=== PATIENT | male | born 1940 | race Caucasian/White ===

== ENCOUNTER 2016-08-14 12:09 | Emergency (ER) | payer MEDICARE ==
[2016-08-14 12:04] LABS: URINE SOURCE CLEAN CATCH
[2016-08-14 12:06] LABS: URINE APPEARANCE CLEAR; URINE BILIRUBIN NEG (NEG); URINE BLOOD 3+ (NEG); URINE COLOR YELLOW; URINE GLUCOSE NEG (NORM); URINE KETONE NEG (NEG); URINE LEUKOCYTE ESTERASE NEG (NEG); URINE NITRATE NEG (NEG); URINE PH 5.5 (5-8); URINE PROTEIN NEG (NEG); URINE UROBILINOGEN 0.2 MG/DL (NORM)
[~2016-08-14 12:09] MED LIST: AMLODIPINE BESYL5 MG PO; AMLODIPINE PO; ASPIRIN EC81 M1 PO; ASPIRIN81 M1; ASPIRIN81 M2 PO; BENTYL20 MG PO; CARAFATE1 G PO; CARVEDILOL12.5 MG PO; CIPRO PO; CLOPIDOGREL75 MG PO; COLACE PO; COREG12.5 MG PO; EYE DROP15 ML OU; IMDUR-ER30 M2 PO; IMDUR-ER30 MG PO; ISOSORBIDE DINI30 MG PO; KEFLEX PO; KEFLEX500 M1 PO; KEFLEX500 M2 PO; LEVAQUIN750 M1 PO; LISINOPRIL10 MG; METRONIDAZOLE PO; MUCOSA400 MG PO; NORVASC PO; PERCOCET 5-3251 TAB PO; PHENERGAN VC W120 M1 PO; PLAVIX PO; PREDNISONE PO; RANITIDINE HCL150 M1 PO; VICODIN 5/1 TAB 5/50 PO; XALATAN OU; ZANTAC150 M1 PO
[2016-08-14 12:10] LABS: MICRO INDICATED? YES
[2016-08-14 12:26] LABS: CULTURE INDICATED? YES; URINE BACTERIA 1+ (NEG); URINE SQUAMOUS EPITHELIAL CELL OCCAS /[HPF]
[2016-08-14 12:27] LABS: URINE MUCUS PRESENT; URINE TRANSITIONAL EPI CELLS OCCAS /[HPF]
== END 2016-08-14 13:25 | disposition home or self-care (01) ==
LOC: SED 12:09
PROVIDERS: Emergency Medicine
DX: N30.91 Cystitis, unspecified with hematuria (principal); K21.9 Gastro-esophageal reflux disease without esophagitis; I25.2 Old myocardial infarction; I10 Essential (primary) hypertension; F41.9 Anxiety disorder, unspecified; Z88.2 Allergy status to sulfonamides; Z88.8 Allergy status to other drugs, medicaments and biological substances; Z79.899 Other long term (current) drug therapy; Z87.891 Personal history of nicotine dependence
CPT/HCPCS: 81003; 87086; 96372; 99283; J0696